=== PATIENT | female | born 1995 | race Caucasian/White ===

== ENCOUNTER → 2020-01-02 | Emergency (ER) | payer OTHER ==
[~2020-01-02] VITALS: Ht 167.6 cm; Wt 88.5 kg
[~2020-01-02] MED LIST: CLINDAMYCIN 900MG IV 50 ML IV ONE; MORPHINE SULFATE 4 MG/ML SYR/VIAL IV ONE; ONDANSETRON HCL 4 MG/2 ML VIAL IV ONE; PIPERACILLIN-TAZOB 3.375GM 100 ML IV ONE; SODIUM CHLORIDE 0.9% 1,000 ML IV ONE
[2020-01-02 01:31] LABS: Basophils # (auto) 0 10 ^3/uL (0-0.2); Basophils % (auto) 0.1 % (0.0-2.0); Eosinophils # (auto) 1.3 10 ^3/uL (0-0.8); Eosinophils % (auto) 10.8 % (0.0-7.0); Hematocrit 38.8 % (36.0-46.0); Hemoglobin 12.7 g/dL (12.2-16.2); Lymphocytes # (auto) 1.6 10 ^3/uL (0.4-5.4); Lymphocytes % (auto) 13.4 % (10.0-50.0); Mean Corpuscular Hemoglobin 28.9 pg (28.0-32.0); Mean Corpuscular Hgb Conc. 32.8 g/dL (32.0-36.0); Monocytes # (auto) 0.6 10 ^3/uL (0-1.3); Monocytes % (auto) 5.3 % (0.0-12.0); Neutrophils # (auto) 8.5 10 ^3/uL (1.6-8.6); Neutrophils % (auto) 70.4 % (37.0-80.0); Platelet Count (auto) 202 10^3/uL (140-450); Red Blood Cells 4.41 10^6/uL (4.0-5.20); Red Cell Distribution Width 13.7 % (11.8-14.3); White Blood Cell 12.1 10^3/uL (4.4-10.8)
[2020-01-02 01:49] LABS: Albumin 3.6 g/dL (3.4-5.0); Calcium 8.7 mg/dL (8.5-10.1); Potassium 4.3 mmol/L (3.5-5.1)
[2020-01-02 01:51] LABS: Bilirubin, Total 0.3 mg/dL (0.2-1.0); Total Protein 7.4 g/dL (6.4-8.2)
[2020-01-02 05:35] VITALS: BP 118/60
== END | disposition home or self-care (01) ==
LOC: ER 00:43
DX: N61.0 Mastitis without abscess (principal)
CPT/HCPCS: 36415; 76642; 80053; 85025; 87077; 87186; 87205; 96365; 96366; 96368; 96375; 99285; J2270; J2405; J2543; J3490; J7030